=== PATIENT | female | born 1935 | race Caucasian/White ===

== ENCOUNTER 2018-08-26 13:20 | Oncology outpatient (ONC) | payer MEDICARE, OTHER, SELFPAY ==
[2018-08-26] MEDS: ZOLEDRONIC ACID 5 MG in SODIUM CHLORIDE 0.9% 100 ML 425 ML IV (13:39)
[2018-08-26 15:38] VITALS: BP 123/92; PULSE 80; RESP 16; TEMP 36.6; O2SAT 96
--- NOTE | 2018-08-26 15:40 | PC.NURSE ---
Pt seen in clinic today for reclast infusion. Information given to pt r/t s/s of reaction and side effects, pt verbalizes understanding. denies chest pain and SOB. Denies N/v, dizziness and lightheadedness. Tolerated infusion w/o difficulty.
== END 2018-08-27 12:00 ==
LOC: ONC 13:24
PROVIDERS: PCP Internal Medicine; Visit Provider Internal Medicine
DX: M81.0 Age-related osteoporosis without current pathological fracture (principal)
CPT/HCPCS: 96374; J3489

== ENCOUNTER 2020-08-28 10:39 | Emergency (ER) | payer MEDICARE, OTHER, SELFPAY ==
[2020-08-28] VITALS (7 sets, daily range): BP systolic 144–187; BP diastolic 70–95; PULSE 72–96; RESP 12–18; TEMP 36.7; O2SAT 90–98; BMI 18.3
--- NOTE | 2020-08-28 10:56 | ED_ITS ---
HPI - General Adult General Chief complaint: Abdominal Pain Stated complaint: Unusual bowel movements Time Seen by Provider: 08/28/20 10:43 Source: patient Mode of arrival: EMS Limitations: no limitations History of Present Illness HPI narrative: Patient is an 84-year-old female here for evaluation of abdominal pain and frequent large bowel movements. Patient states that she has had abdominal pain for ?some time now ?her definition of this was the past several months. Over the past couple days she states she has had frequent well-formed large bowel movements. She states that they have been somewhat streaked with bright red blood. No black colored stool. She also is having abdominal pain which is her normal pain. No nausea vomiting. No urinary symptoms. She has had her appendix removed when she was 9 years old. She has also had another surgery which according to her description sounds like a lysis of adhesions although I am not 100% sure this peer she stated that she called EMS this morning because of her frequent large bowel movements and she was feeling somewhat flushed and sweaty this morning. Related Data Allergies Allergy/AdvReac Type Severity Reaction Status Date / Time No Known Drug Allergies Allergy Verified 08/28/20 10:50 Review of Systems Constitutional Constitutional: Reports chills, Denies fatigue, Denies fever(s) and Denies heada danii(s) Eyes Eyes: Denies change in vision ENT Ears, Nose, Mouth, and Throat: Denies headache(s) and Denies sore throat Cardiovascular Cardiovascular: Denies chest pain and Denies dyspnea Respiratory Respiratory: Denies dyspnea Gastrointestinal Gastrointestinal: Reports abdominal pain, Denies nausea and Denies vomiting Comments: Frequent large bowel movements Genitourinary Genitourinary: Denies dysuria Genitourinary: Denies dysuria and Denies vaginal discharge Musculoskeletal Musculoskeletal: Denies arthralgias, Denies back pain and Denies myalgias Integumentary/Breasts Skin/Breast: Denies lesions and Denies rash Neurologic Neurologic: Denies behavioral changes and Denies headache(s) Psychiatric Psychiatric: Denies behavioral changes Endocrine Endocrine: Denies fatigue Hematologic/Lymphatic Hematologic/Lymphatic: Denies easy bleeding and Denies easy bruising Allergic/Immunologic Allergic/Immunologic: Denies urticaria Patient History Medical History Hypothyroid (Acute) Social History (Reviewed 08/28/20 @ 11:07 by AMBER Lazaro Smoking Status: Former smoker Smoking Status: Former smoker alcohol intake frequency: 0-2 drinks per day Substance Use Type: does not use Exam Initial Vital Signs Initial Vital Signs: Vital Signs Temperature 98.1 F 08/28/20 10:45 Pulse Rate 85 08/28/20 10:45 Respiratory Rate 18 08/28/20 10:45 Blood Pressure 187/81 H 08/28/20 10:45 Pulse Oximetry 96 08/28/20 10:45 Const General: cooperative and comfortable Limitations: mental status not altered HENMO Head: normal to inspection and normocephalic Resp Effort & Inspection: normal respiratory effort Auscultation: clear to auscultation bilaterally Cardio Rate: regular rate Rhythm: regular rhythm GI Inspection: non-distended Palpation: soft, No firm and tender (Somewhat tender mid abdomen without rebound or guarding) Skin Lesions: no lesions Rashes: no rashes Neuro General: patient alert and patient awake Cognition: normal cognition Speech: speech normal Extrem General: normal to inspection and capillary refill normal Psych Appearance: grossly normal and well kempt Scores GCS Wagner coma scale eye opening: Spontaneous Wagner coma scale verbal response: Orientated Wagner coma scale motor response: Obey commands Wagner coma scale total score: 15 Course Orders Ordered: ED Orders 08/28/20 10:57 CT abdomen pelvis w con Stat 08/28/20 11:17 Complete Blood Count AUTO DIFF Stat Comprehensive Metabolic Panel Stat Free T3, Triiodothyronine Free Stat Free T4, Direct Thyroxine Stat Lipase Stat Thyroid Stimulating Hormone Stat Discontinued Medications Sodium Chloride (Normal Saline 0.9%) 1,000 mls @ 500 mls/hr IV BOLUS ONE Stop: 08/28/20 12:55 Last Admin: 08/28/20 11:29 Dose: 500 mls/hr Documented by: RAZIA Vital Signs Vital signs: Vital Signs - 8 hr 08/28/20 10:45 08/28/20 11:19 08/28/20 11:20 Temperature 98.1 F Pulse Rate 85 76 74 Respiratory Rate 18 Blood Pressure 187/81 H 144/70 H Pulse Oximetry 96 96 97 08/28/20 11:30 08/28/20 12:04 08/28/20 12:30 Temperature Pulse Rate 72 96 H Respiratory Rate Blood Pressure 148/72 H 144/95 H Pulse Oximetry 97 90 L 98 Medical Decision Making Lab Data Lab results reviewed: Yes I reviewed the patient's lab results. Result diagrams: 08/28/20 11:17 08/28/20 11:17 Labs: Lab Results 08/28/20 08/28/20 08/28/20 Range/Units 11:17 11:17 11:17 WBC 5.5 (4.5-11.0) X10^3/uL RBC 4.18 (4.0-5.2) X10^6/uL Hgb 13.8 (12.0-16.0) g/dL Hct 40.8 (36-46) % MCV 97.6 (80-100) fL MCH 32.9 (26-34) PG MCHC 33.8 (30-36) % RDW 12.5 (11.6-14.8) % Plt Count 215 (150-400) X10^3/uL Neut % (Auto) 72.6 (50-75) % Lymph % (Auto) 17.1 L (25-40) % [place] % (Auto) 9.0 (3-14) % Eos % (Auto) 0.2 L (2-4) % Baso % (Auto) 1.1 (0-2) % Neut # (Auto) 4000 (5831-6534) /uL Lymph # (Auto) 900 L (1609-3501) /uL [place] # (Auto) 500 (0-900) /uL Eos # (Auto) 0 (0-450) /uL Baso # (Auto) 100 (0-100) /uL Sodium 138 (137-145) mmol/L Potassium 4.4 (3.4-5.1) mmol/L Chloride 111 H (98-107) mmol/L Carbon Dioxide 24 (22-32) mmol/L BUN 21 H (7-17) mg/dL Creatinine 0.50 L (0.52-1.04) mg/dL Estimated GFR > 60.0 (>60) mL/min BUN/Creatinine Ratio 42.0 H (6-22) Glucose 101 (80-110) mg/dL Calcium 8.9 (8.4-10.2) mg/dL Total Bilirubin 0.9 (0.2-1.3) mg/dL AST 29 (14-36) IU/L ALT 11 (<35) IU/L Alkaline Phosphatase 68 (38-126) U/L Total Protein 7.0 (6.3-8.2) g/dL Albumin 3.7 (3.5-5.0) g/dL Globulin 3.3 (1.7-4.1) g/dL Albumin/Globulin Ratio 1.1 (1.0-2.8) Lipase 84 (23-300) U/L TSH < 0.015 L (0.47-4.68) uIU/mL Urine Dip Bedside Urine Glucose Negative Bedside Urine Bilirubin - Negative Bedside Urine Ketone - Negative Urine Specific [place] 1.020 Bedside Urine Occult Blood - Negative Bedside Urine pH 6.5 Bedside Urine Protein - Negative Bedside Urine Urobilinogen - Negative Bedside Urine Nitrite - Negative Bedside Urine Leukocytes - Negative Esterase Point of care testing: Urine Dip Bedside Urine Glucose Negative Bedside Urine Bilirubin - Negative Bedside Urine Ketone - Negative Urine Specific [place] 1.020 Bedside Urine Occult Blood - Negative Bedside Urine pH 6.5 Bedside Urine Protein - Negative Bedside Urine Urobilinogen - Negative Bedside Urine Nitrite - Negative Bedside Urine Leukocytes - Negative Esterase Imaging Data CT scan - abdomen/pelvis: Radiologist's Impression: [place] [address] CT Scan Report Signed [id number] : 5Acct:[id number] Age/Sex: 84 / FDate of Service: 08/28/20 Loc: ED Accession Number: [id number] Procedure: CT abdomen pelvis w con Ordering Provider: Miko Munoz D.O. PROCEDURE: CT ABDOMEN PELVIS W CON INDICATIONS: Generalized abdominal pain TECHNIQUE: After the administration of intravenous contrast, 5 mm thick sections acquired from the diaphragm to the symphysis. 5 mm coronal and sagittal reformats were acquired. For radiation dose reduction, the following was used: automated exposure control, adjustment of mA and/or kV according to patient size. COMPARISON: None. FINDINGS: Image quality: Excellent. ABDOMEN: Lung bases: Lung bases are clear. Heart size is normal. Solid organs: Liver is normal in size and enhancement. Mild diffuse hepatic steatosis. Gallbladder is unremarkable. Biliary system is non dilated. Pancreas enhances normally. Spleen is normal in size and enhancement. No adrenal nodules. Kidneys demonstrate normal size and enhancement, without hydronephrosis. There is a partially exophytic enhancing mass extending off the inferior margin of the right kidney measuring 2.8 x 2.8 cm in size. Peritoneum and bowel: Bowel loops demonstrate normal wall thickness and caliber. No free fluid or air. Scattered colonic diverticula without acute inflammation. Nodes and vessels: No retroperitoneal or mesenteric adenopathy by size criteria. Aorta and inferior vena cava are normal in size. Scattered atherosclerotic calc ifications of the abdominal aorta and iliac vessels without aneurysmal dilatation. Miscellaneous: No ventral hernias. PELVIS: Genitourinary: Bladder wall thickness is normal. There is prominent venous structures within the pelvis, adjacent to the uterus with mild enlargement of the bilateral renal veins. Miscellaneous: No inguinal hernias or adenopathy. Bones: No suspicious bony lesions. No acute vertebral body compression fractures. Multilevel spondylosis of the imaged spine. Diffuse osteopenia. Severe degenerative changes of the bilateral hips. IMPRESSION: 1. CT abdomen and pelvis without acute abnormalities. 2. A 2.8 cm partially exophytic, enhancing mass involving the inferior pole of the right kidney which is highly suspicious for renal neoplasm. No evidence for distant disease. 3. Colonic diverticulosis without acute diverticulitis. 4. Prominent uterine veins with enlargement of the bilateral ovarian veins may be seen with pelvic congestion syndrome. 5. 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 No evidence for mesenteric ischemia. 6. Diffuse hepatic steatosis. 7. 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 Dictated by: Glen Carcamo M.D. on 08/28/2020 at 11:37 Approved by: Glen Carcamo M.D. on 08/28/2020 at 11:49 MDM Narrative Medical decision making narrative: Patient is afebrile. Vital signs are unremarkable. No chest pain or shortness of breath. The CT scan of her abdomen pelvis showed no acute bowel pathology. She does have a mass around her right kidney. I did discuss this with her. I did inform her that it is important that she needs to follow up with her primary doctor regarding this for further evaluation as it can be an indication of a malignant process. Her TSH is also low. A free T3 and free T4 were pending at the time of her discharge. She has not had any changes in her thyroid medications recentl. I have low suspicion for acute hyperthyroid issues. Informed her that she needed talk with her primary doctor regarding this about a changes to her medicines. With regard to her presenting symptoms, does not appear to be an infectious process. No signs of bowel obstruction. No indication for surgical intervention. I discussed all this with her. She was given return precautions and follow-up instructions. She expressed understanding and agreement. Discharge Plan Departure Patient Disposition: Home Clinical Impression: Abdominal pain, Frequent bowel movements, Hyperthyroidism, Kidney mass Instructions: DI for Abdominal Pain-Adult Activity Restrictions/Additional Instructions: I recommend that you follow-up with your primary doctor regarding your thyroid studies. Your labs that were drawn today show that you potentially are on too much of your levothyroxine. I also recommend that you talk with your primary doctor about the incidental finding of the mass around your right kidney. Rec ommend that you eat and drink like normal. If your frequent bowel movements do not improve in the next couple days please talk with your primary doctor about further workup this as well. Return to the emergency department for any new symptoms. Referrals: Trey Melendez MD [Primary Care Provider] -
[2020-08-28 11:23] LABS: Add Manual Diff / Slide Review NO; Basophils Absolute Auto 100 /uL (0-100); Basophils Percent Auto 1.1 % (0-2); Eosinophils Absolute Auto 0 /uL (0-450); Eosinophils Percent Auto 0.2 % (2-4); Hematocrit 40.8 % (36-46); Hemoglobin 13.8 g/dL (12.0-16.0); Lymphocytes Absolute Auto 900 /uL (1100-4500); Lymphocytes Percent Auto 17.1 % (25-40); Mean Corpuscular HGB Conc 33.8 % (30-36); Mean Corpuscular Hemoglobin 32.9 PG (26-34); Mean Corpuscular Volume 97.6 fL (80-100); Monocytes Absolute Auto 500 /uL (0-900); Neutrophils Absolute Auto 4000 /uL (1500-7000); Neutrophils Percent Auto 72.6 % (50-75); Platelet Count 215 X10^3/uL (150-400); Red Blood Cell Count 4.18 X10^6/uL (4.0-5.2); Red Cell Distribution Width 12.5 % (11.6-14.8); White Blood Cell Count 5.5 X10^3/uL (4.5-11.0)
[2020-08-28] MEDS: SODIUM CHLORIDE 0.9% 1,000 ML 500 ML IV (11:29)
[2020-08-28 11:35] LABS: Alanine Aminotransferase 11 IU/L (<35); Albumin 3.7 g/dL (3.5-5.0); Albumin Globulin Ratio 1.1 (1.0-2.8); Alkaline Phosphatase 68 U/L (38-126); Aspartate Aminotransferase 29 IU/L (14-36); Bilirubin Total 0.9 mg/dL (0.2-1.3); Blood Urea Nitrogen 21 mg/dL (7-17); Calcium 8.9 mg/dL (8.4-10.2); Carbon Dioxide 24 mmol/L (22-32); Chloride 111 mmol/L (98-107); Estimated Glomerular Filt Rate > 60.0 mL/min (>60); Globulin 3.3 g/dL (1.7-4.1); Glucose 101 mg/dL (80-110); Lipase 84 U/L (23-300); Potassium 4.4 mmol/L (3.4-5.1); Sodium 138 mmol/L (137-145)
[2020-08-28 11:40] LABS: HEMOLYSIS 103 (0-50)
[2020-08-28 12:49] LABS: Thyroid Stimulating Hormone < 0.015 uIU/mL (0.47-4.68)
[2020-08-28 13:27] LABS: Free T3, Triiodothyronine Free 3.77 pg/mL (2.77-5.27); Free T4, Direct Thyroxine 2.75 ng/dL (0.78-2.19)
== END 2020-08-28 13:34 | disposition home or self-care (01) ==
PROVIDERS: Emergency Provider Emergency Medicine; PCP Internal Medicine
DX: R10.9 Unspecified abdominal pain (principal); R19.4 Change in bowel habit; E05.90 Thyrotoxicosis, unspecified without thyrotoxic crisis or storm; N28.89 Other specified disorders of kidney and ureter
CPT/HCPCS: 36415; 74177; 80053; 81003; 83690; 84439; 84443; 84481; 85025; 96360; 96361; 99284; Q9967

== ENCOUNTER → 2020-09-01 13:18 | Outpatient (CLI) | payer MEDICARE, OTHER, SELFPAY ==
--- NOTE | 2020-09-01 | DI.US.S_ITS ---
PROCEDURE: US RENAL COMPLETE INDICATIONS: Other specified disorders of kidney and ureter TECHNIQUE: Real-time scanning was performed of the kidneys and bladder, with image documentation. COMPARISON: [facility], CT, CT ABDOMEN PELVIS W CON, 08/28/2020, 12:14. FINDINGS: Kidneys: Kidneys are normal in size. Right kidney measures 9.9 cm long; left kidney measures 10.1 cm long. Right renal cortical thickness is 1.2 cm; left renal cortical thickness is 1.7 cm. Renal cortical echotexture is normal. No hydronephrosis or nephrolithiasis. No suspicious solid mass lesions on the left but there is a 2.9 cm rounded mass at the lower tip of the right kidney as seen on recent CT.. Bladder: Pre-void bladder volume is 201 mL. Post-void residual is 17 mL. Pre-void images demonstrate no intraluminal masses or stones. On pre-void images, bilateral ureteral jets are noted with color Doppler interrogation. (Of note, ureteral jets may not be detectable in up to 25% of cases due to insufficient differences in specific gravity between ureteral and bladder urine). Miscellaneous: No free pelvic fluid. 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 Dictated by: James Abad M.D. on 09/01/2020 at 15:56 Approved by: James Abad M.D. on 09/02/2020 at 15:14
== END ==
PROVIDERS: PCP Internal Medicine; Referring Provider Internal Medicine; Visit Provider Internal Medicine
DX: N28.89 Other specified disorders of kidney and ureter (principal)
CPT/HCPCS: 76770

== ENCOUNTER → 2020-12-23 20:13 | Outpatient (ROUT) | payer MEDICARE, OTHER, SELFPAY ==
[2020-12-23 20:51] LABS: Add Manual Diff / Slide Review NO; Basophils Absolute Auto 0 /uL (0-100); Basophils Percent Auto 0.4 % (0-2); Eosinophils Absolute Auto 0 /uL (0-450); Eosinophils Percent Auto 0.3 % (2-4); Hematocrit 39.8 % (36-46); Hemoglobin 13.5 g/dL (12.0-16.0); Lymphocytes Absolute Auto 1400 /uL (1100-4500); Lymphocytes Percent Auto 23.4 % (25-40); Mean Corpuscular HGB Conc 33.8 % (30-36); Mean Corpuscular Hemoglobin 33.1 PG (26-34); Mean Corpuscular Volume 97.8 fL (80-100); Monocytes Absolute Auto 700 /uL (0-900); Monocytes Percent Auto 11.7 % (3-14); Neutrophils Absolute Auto 3800 /uL (1500-7000); Neutrophils Percent Auto 64.2 % (50-75); Platelet Count 245 X10^3/uL (150-400); Red Blood Cell Count 4.07 X10^6/uL (4.0-5.2); Red Cell Distribution Width 13.4 % (11.6-14.8); White Blood Cell Count 5.9 X10^3/uL (4.5-11.0)
[2020-12-23 21:03] LABS: Alanine Aminotransferase 9 IU/L (<35); Albumin 3.8 g/dL (3.5-5.0); Albumin Globulin Ratio 1.4 (1.0-2.8); Alkaline Phosphatase 83 U/L (38-126); Aspartate Aminotransferase 18 IU/L (14-36); BUN Creatinine Ratio 34.8 (6-22); Bilirubin Total 0.4 mg/dL (0.2-1.3); Blood Urea Nitrogen 23 mg/dL (7-17); Calcium 9.4 mg/dL (8.4-10.2); Carbon Dioxide 27 mmol/L (22-32); Chloride 107 mmol/L (98-107); Estimated Glomerular Filt Rate > 60.0 mL/min (>60); Globulin 2.8 g/dL (1.7-4.1); Glucose 109 mg/dL (80-110); HEMOLYSIS < 15 (0-50); Potassium 4.2 mmol/L (3.4-5.1); Sodium 138 mmol/L (137-145); Total Protein 6.6 g/dL (6.3-8.2)
[2020-12-23 21:49] LABS: TSH w/ Reflex to FT4 0.04 uIU/mL (0.47-4.68)
[2020-12-23 23:12] LABS: Free T4, Direct Thyroxine 2.29 ng/dL (0.78-2.19)
== END ==
PROVIDERS: PCP Internal Medicine; Visit Provider Internal Medicine
DX: N28.89 Other specified disorders of kidney and ureter (principal); E03.9 Hypothyroidism, unspecified
CPT/HCPCS: 80053; 84439; 84443; 85025

== ENCOUNTER → 2021-02-28 10:37 | Outpatient (CLI) | payer MEDICARE, OTHER, SELFPAY ==
--- NOTE | 2021-02-28 | DI.US.S_ITS ---
PROCEDURE: US RENAL COMPLETE INDICATIONS: Other specified disorders of kidney and ureter TECHNIQUE: Real-time scanning was performed of the kidneys and bladder, with image documentation. COMPARISON: [facility], , US RENAL COMPLETE, 09/01/2020, 14:16. FINDINGS: Kidneys: Kidneys are normal in size. Right kidney measures 10.0 cm long; left kidney measures 9.4 cm long. Right renal cortical thickness is 1.0 cm; left renal cortical thickness is 1.1 cm. Renal cortical echotexture is normal. No hydronephrosis or nephrolithiasis. No suspicious solid mass lesions on the left but there is a exophytic inferior pole right renal cortical solid mass measuring up to 2.8 x 2.9 cm. This structure also measured 2.9 cm in maximal dimension on ultrasound from 09/01/20. Bladder: The bladder was empty at time of this scanning and therefore bladder function evaluation could not be performed. If clinically desired a dedicated bladder study could be performed in the near term with proper bladder preparation. Miscellaneous: No free pelvic fluid. IMPRESSION: No identifiable interval enlargement in the mass lesion seen by ultrasound 09/01/20 and also measured today by ultrasound. No new lesion is found. Please note the bladder was not evaluated as discussed above. Dictated by: James Abad M.D. on 02/28/2021 at 17:23 Approved by: James Abad M.D. on 02/28/2021 at 17:26
== END ==
PROVIDERS: PCP Internal Medicine; Referring Provider Urology; Visit Provider Urology
DX: N28.89 Other specified disorders of kidney and ureter (principal)
CPT/HCPCS: 76770

== ENCOUNTER → 2021-03-10 19:38 | Outpatient (ROUT) | payer MEDICARE, OTHER, SELFPAY ==
[2021-03-10 20:36] LABS: TSH w/ Reflex to FT4 0.27 uIU/mL (0.47-4.68)
[2021-03-10 20:52] LABS: Vitamin B12 784 pg/mL (239-931)
== END ==
PROVIDERS: PCP Internal Medicine; Visit Provider Internal Medicine
DX: E03.9 Hypothyroidism, unspecified (principal); E53.8 Deficiency of other specified B group vitamins
CPT/HCPCS: 82607; 84439; 84443